=== PATIENT | male | born 1990 | race Caucasian/White ===

== ENCOUNTER 2018-09-26 18:44 | Emergency (ER) | payer SELFPAY ==
[~2018-09-26] VITALS: Ht 162.6 cm; Wt 63.5 kg
[2018-09-26 18:48] VITALS: BP 126/85
--- NOTE | 2018-09-26 19:00 | NUR ---
PT BIB [facility] [employer] C/O ABRASION TO TOP OF HEAD, BLEEDING CONTROLLED, A/OX4 SPEAKING IN FULL CLEAR SENTENCES GCS 15. PUPILS PERRLA 3MM. DENIES PAIN. Pupils equal and reactive to light bilaterally. No facial droop noted. No smile deficit noted. Speech normal for patient. Patient is alert and oriented to person, place, time and event. 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 Bilateral foot push equal.
--- NOTE | 2018-09-26 19:30 | NUR ---
PATIENT BIB [facility] [employer]. PATIENT EXAMINED BY DR. GUTIERREZ. PATIENT MEDICALLY CLEARED AND RELEASED IN CUSTODY IN STABLE CONDITION. ORIGINAL PRE-BOOK FORM GIVEN TO OFFICER #[id number].
[2018-09-26 19:31] VITALS: BP 126/85
== END 2018-09-26 19:30 ==
LOC: MED 18:44
DX: F10.129 Alcohol abuse with intoxication, unspecified (principal); Z02.89 Encounter for other administrative examinations
CPT/HCPCS: 99283